=== PATIENT | female | born 1950 | race Caucasian/White ===

== ENCOUNTER 2017-01-14 07:58 | Day surgery (SDC) | payer BC ==
[2017-01-14] MEDS ORDERED: PROPOFOL 10 MG/ML VIAL IV ONE (14:00)
[2017-01-14] MEDS ORDERED: LIDOCAINE 2% MDV (20MG/ML) 20ML VIAL IV ONE (14:00)
--- NOTE | 2017-01-16 11:10 | Operative Note ---
DATE OF SURGERY: 01/14/2017 OPERATION: Attempted COLONOSCOPY, incomplete colonoscopy due to redundant fixed colon. INDICATION: History of adenomatous polyps in the past. The patient returns at this time for surveillance. It has been 5 years since her last examination. She has had multiple surgeries including hysterectomy, 3 sections, and cholecystectomy. ANESTHESIA: Intravenous sedation was administered by the department of anesthesiology and included Diprivan titrated to effect. PROCEDURE: Following informed consent from this alert individual including a discussion of the risks and benefits of the procedure and an opportunity for the patient to ask questions, the patient was in the left lateral decubitus position. A digital rectal examination was performed. No abnormalities were noted. Following this, the Olympus [id number] video colonoscope was inserted into the rectum without resistance. The rectal mucosa had a normal appearance with normal folds and distensibility. The endoscope was then passed up into a somewhat redundant fixed sigmoid colon. Attempting to advance the colonoscope further was unsuccessful due to again a fixed immobile sigmoid colon and concerns for possible perforation. From the proximal sigmoid colon, the colonoscope was then withdrawn. No mucosal abnormalities are detected. Retroflexion in the rectum was endoscopically unremarkable. The instrument was removed. The patient tolerated the procedure well and was returned to the recovery area in stable condition. IMPRESSION: Fixed redundant sigmoid colon precluding advancement further into the bowel. RECOMMENDATIONS: The patient will have a barium enema x-ray to complete colon evaluation. Further recommendations will be forthcoming pending those results. Followup will also be with Dr. Jacoby Mclaughlin. As always, thank you for allowing me to participate in the care of your patient. Bora Tejada DO CC: Dr. Jacoby ELIZABETH
== END 2017-01-14 11:37 | disposition home or self-care (01) ==
LOC: HOP 07:58
PROVIDERS: ATTEND Internal Medicine Gastroenterology
DX: Z09 Encounter for follow-up examination after completed treatment for conditions other than malignant neoplasm (principal); K63.89 Other specified diseases of intestine

== ENCOUNTER 2017-01-22 10:24 | Emergency (ER) | payer BC ==
[2017-01-22] MEDS ORDERED: ACETAMINOPHEN 1,000 MG/100 ML BTL IVPB ONE (10:34)
--- NOTE | 2017-01-22 10:42 | Emergency Department Record ---
History of Present Illness - General Chief Complaint: Shortness of breath Stated Complaint: TREMORS Time Seen by Provider: 01/22/17 10:26 Source: Patient, Family Mode of Arrival: Ambulatory Limitations: No limitations - History of Present Illness Initial Comments: 66 yo female presents with several days of cough. Today she developed shaking chills, subjective fever with continued cough and body aches. Her cough has been mostly non productive. She was treated about one month ago for a cough with a ZPack. She had improved. This morning the chills and shakes have been uncontrolled. No vomiting or diarrhea. She has some pains in the chest but that is with shaking. She has had a complete cardiac work up including a cath that was negative. No rash. She reports she got a flu shot one week ago. PCP is Dr Mclaughlin. She is up to date on immunizations. MD Complaint: Cough, Shortness of breath -: Hour(s) Severity: Moderate Quality: Aching Consistency: Constant Improves With: Nothing Worsens With: Coughing Context: Anxiety Associated Symptoms: Chest pain, Cough, Fever, Palpitations - Related Data Home Medications Medication Instructions Recorded Confirmed Last Taken Ascorbic Acid [Vitamin C] 250 mg PO DAILY 06/28/14 01/22/17 01/22/17 Celecoxib [Celebrex] 200 mg PO DAILY 06/28/14 01/22/17 01/22/17 Levothyroxine Sodium [Synthroid] 25 mcg PO DAILYTHY 06/28/14 01/22/17 01/22/17 Travoprost [Travatan Z] 2.5 ml OPTH QHS 06/28/14 02/09/15 01/21/17 Hydroxychloroquine Sulfate 200 mg PO DAILY 01/22/17 01/22/17 01/22/17 [Plaquenil] Previous Rx's Medication Instructions Recorded Benzonatate [Tessalon] 2 cap PO Q8H PRN #20 cap 01/22/17 Levofloxacin [Levaquin] 750 mg PO DAILY #7 tab 01/22/17 Allergies Allergy/AdvReac Type Severity Reaction Status Date / Time codeine AdvReac Intermediate RASH Verified 01/22/17 10:28 Review of Systems Constitutional: Reports: Chills, Fever, Malaise, Weakness Eyes: Denies: Eye discharge, Eye pain, Photophobia, Vision change ENT: Reports: Congestion. Denies: Throat pain Respiratory: Reports: Cough. Denies: Dyspnea, Hemoptysis, Stridor, Wheezes Cardiovascular: Reports: Chest pain. Denies: Palpitations, Syncope Endocrine: Denies: Polydipsia, Polyuria Gastrointestinal: Denies: Abdominal pain, Diarrhea, Nausea, Vomiting Genitourinary: Denies: Dysuria, Urgency Musculoskeletal: Reports: Myalgia. Denies: Arthralgia, Back pain, Joint swelling, Neck pain Skin: Denies: Bruising, Change in color, Rash Neurological: Reports: Headache. 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 - Hx Genitourinary Disorders: No - ENDOCRINE Hx Endocrine Disorders: Yes Hx Thyroid Disease: Yes - MUSCULOSKELETAL Hx Musculoskeletal Disorders: Yes Hx Arthritis: Yes Comment:: Lupus - PSYCH Hx Psych Problems: No - HEMATOLOGY/ONCOLOGY Hx Hematology/Oncology Disorders: Yes Hx Cancer: Yes (BREAST) Hx Chemotherapy: No Hx Radiation Therapy: Yes Family Medical History Hx Diabetes: Father, Brother/Sister Hx Heart Disease: Father Hx Stroke: Father Physical Exam - General General Appearance: Alert, Oriented x3, Cooperative, No acute distress Limitations: No limitations - Head Head exam: Normal inspection - Eye Eye exam: Normal appearance, PERRL. negative: Conjunctival injection, Periorbital swelling - ENT ENT exam: Normal exam, Mucous membranes moist Ear exam: Normal external inspection Nasal Exam: Normal inspection Mouth exam: Normal external inspection Teeth exam: Normal inspection - Neck Neck exam: Normal inspection, Full ROM. negative: Tenderness - Respiratory Respiratory exam: Decreased breath sounds, Rhonchi (few scattered mild). negative: Accessory muscle use, Prolonged expiratory - Cardiovascular Cardiovascular Exam: Normal rhythm, Normal heart sounds, Tachycardia Peripheral Pulses: 2+: Radial (R), Radial (L) - GI/Abdominal GI/Abdominal exam: Soft. negative: Distended, Tenderness - Rectal Rectal exam: Deferred - exam: Deferred - Extremities Extremities exam: Normal inspection, Full ROM, Normal capillary refill. negative: Pedal edema, Tenderness - Back Back exam: Reports: Normal inspection, Full ROM. Denies: Muscle spasm, Rash noted, Tenderness - Neurological Neurological exam: Alert, Normal gait, Oriented X3 - Psychiatric Psychiatric exam: Normal affect, Normal mood - Skin Skin exam: Dry, Intact, Normal color, Warm Course - Reevaluation(s) Reevaluation #1: EKG 10:52 NSR rate 108, intervals normal, axis normal, ST normal. No ischemic changes. Normal appearing EKG. No changes from 06/28/14 Patient is improving quickly with HR now 105 from 135. 01/22/17 10:55 01/22/17 10:57 Reevaluation #2: The labs were reviewed Influenza is negative CXR was read as no acute process CBC with WBC of 11 with normal N and normal bands No acute changes on the CMP ESR and CRP are negative lactic acid mild increase at 2.6 (possible from shivering) The patient is much improved. Vitals now in the normal range. UA obtained and sent to lab Will complete second liter and recheck Lactic Acid. 01/22/17 12:02 01/22/17 12:12 UA reviewed and is negative. Reevaluation #3: The lactic acid repeat normalized to 1.3 The patient continues to do very well. No signs of sepsis or serious infection with the labs, vitals and clinic improvement I will discuss with the patient's PCP as well Levaquin given. 01/22/17 13:30 Reevaluation #4: I Sw the patient's PCP and discussed the clinical presentation and work up The patient will be DC home. Dr Mclaughlin will follow the cultures. The patient will be given instructions for returning to the ED as well as follow up with Dr Mclaughlin this week. 01/22/17 13:38 - Consultations Consultation #1: [facility] Summary01/25/15 DCDx: UTI, NSTEMI, Bacteremia, Hypotension. (Hx of esophageal achalasia, fibromyalgia, C-Cestion, Hypthyroid, Lupus) She had a normal cardiac cath in 2014 with normal epicardial arteries She was E. coli positive urine and blood treated with Levaquin. Medical Decision Making - Lab Data Result diagrams: 01/22/17 10:35 01/22/17 10:35 Disposition Disposition: Discharge Clinical Impression: Cough, Chills with fever Disposition: Home, Self-Care Condition: (1) Good Instructions: Acute Bronchitis (ED) Additional Instructions: Return immediately if you develop chills or shakes You may take Tylenol or Motrin for mild fever or aches Take the Levaquin daily as directed Call Dr Mclaughlin to followup Prescriptions: Benzonatate [Tessalon] 2 cap PO Q8H PRN #20 cap PRN Reason: Cough Levofloxacin [Levaquin] 750 mg PO DAILY #7 tab Forms: Patient Portal Access Time of Disposition: 13:39
[2017-01-22 10:48] LABS: HEMATOCRIT 42.8 % (35.0-47.0); HEMOGLOBIN 14.7 gm/dl (11.6-16.0); MEAN CELL VOLUME 89.4 fl (81-97); MEAN CORPUSCULAR HEMOGLOBIN 30.7 pg (27-33); MEAN CORPUSCULAR HGB CONC 34.3 g/dl (32-36); MEAN PLATELET VOLUME 8.7 fl (7.4-10.4); PLATELET COUNT 246 K/uL (130-400); RED BLOOD COUNT 4.79 M/uL (3.80-5.40); RED CELL DISTRIBUTION WIDTH 12.4 % (11.5-14.5)
[2017-01-22] MEDS ORDERED: 0.9 % SODIUM CHLORIDE 1,000 ML BAG IV ONE ×2 (10:58→11:51)
[2017-01-22 11:00] LABS: ALB/GLOB RATIO 1.3 (1.1-1.8); ALBUMIN 4.5 gm/dL (3.5-5.0); ALKALINE PHOSPHATASE 112 U/L (38-126); ALT/SGPT 31 U/L (9-52); ANION GAP 8.7 (7-16); AST/SGOT 28 U/L (14-36); BILIRUBIN,TOTAL 0.84 mg/dL (0.2-1.3); BLOOD UREA NITROGEN 19 mg/dL (7-17); CARBON DIOXIDE 26.3 mmol/L (22-30); CREATININE 0.7 mg/dL (0.52-1.04); EST GLOMERULAR FILTRATION RATE > 60 ml/min; GLUCOSE,RANDOM 122 mg/dL (70-110); TOTAL PROTEIN 8.1 gm/dL (6.3-8.2)
[2017-01-22 11:02] LABS: INFLUENZA A NEGATIVE (NEGATIVE); INFLUENZA B NEGATIVE (NEGATIVE)
[2017-01-22 11:03] LABS: C-REACTIVE PROTEIN < 0.5 mg/dL (0.0-0.9)
[2017-01-22 11:06] LABS: PLATELET ESTIMATE NORMAL (NORMAL)
[2017-01-22 11:29] LABS: ERYTHROCYTE SEDIMENTATION RATE 2 mm/hr (0-30)
[2017-01-22 12:07] LABS: URINE APPEARANCE SL CLOUDY; URINE BILIRUBIN NEGATIVE (NEGATIVE); URINE BLOOD NEGATIVE (NEGATIVE); URINE COLOR YELLOW; URINE GLUCOSE (UA) NEGATIVE (NEGATIVE); URINE KETONE NEGATIVE (NEGATIVE); URINE LEUKOCYTE ESTERASE NEGATIVE (NEGATIVE); URINE NITRITE NEGATIVE (NEGATIVE); URINE PROTEIN NEGATIVE (NEGATIVE); URINE UROBILINOGEN 0.2 E.U./dL (0.20 - 1.00)
[2017-01-22] MEDS ORDERED: LEVOFLOXACIN/D5W 750 MG/150 ML BAG IVPB ONE (12:11)
--- NOTE | 2017-01-23 09:14 | RADIOLOGY REPORT ---
EXAM: CHEST, TWO VIEWS HISTORY: FEVER AND CHILLS TODAY. COUGH FOR FIVE WEEKS. TECHNIQUE: Semi-erect AP and lateral views of the chest were obtained. Comparison: Two view chest radiographic examination dated 10/20/09. FINDINGS: The heart is not enlarged and the pulmonary vasculature is nondilated. No confluent air space opacity is seen nor is there costophrenic angle blunting or pneumothorax. Surgical clips project at the level of the anterior right axilla. There are degenerative changes of the visualized spine. IMPRESSION: NO RADIOGRAPHIC EVIDENCE OF ACUTE CARDIOPULMONARY DISEASE WITHOUT SUSPICIOUS CHANGE SINCE 10/20/09. JOB NUMBER: [id number] MTDD
== END 2017-01-22 14:27 | disposition home or self-care (01) ==
LOC: ER 10:24
DX: R05 Cough (principal); R50.9 Fever, unspecified; R06.02 Shortness of breath; R51 Headache; R07.9 Chest pain, unspecified; Z85.3 Personal history of malignant neoplasm of breast
CPT/HCPCS: 99284 ×2; 96365; 96375; 83605; 85651; 86140; 80053; 81003; 87400; 85027; 71020; 93005; 93010; J1956; J7030

== ENCOUNTER 2018-11-19 18:10 | Emergency (ER) | payer MEDICARE ==
[2018-11-19] MEDS ORDERED: IBUPROFEN 600 MG TABLET PO ONE (18:21)
--- NOTE | 2018-11-19 18:26 | Emergency Department Record ---
History of Present Illness - General Chief complaint: Lower Extremity Pain Stated complaint: fall/rt leg pain Time Seen by Provider: 11/19/18 18:20 Source: Patient Mode of Arrival: Wheelchair Limitations: No limitations - History of Present Illness Initial comments: 68 yo female presents to ED for evaluation of right thigh and calf pain that began approximately 1 week ago. Patient denies specific injury, but reports that she has been compensating for her pain symptoms and while walking down steps this evening felt a "pop like a rubber band" and pain radiating from the popliteal region proximally. Patient reports that she has been unable to weight bear following her injury. Patient denies recent quinolone use, reports a history of lupus, fibromyalgia, and breast cancer in remission. MD Complaint: Extremity pain Onset/Timin -: Week(s) Location: Right, Lower Leg, Thigh History of Same: No -: Yes Myalgia Radiation: Proximal Quality: Aching Consistency: Constant Improves with: Nothing Worsens with: Weight bearing Associated Symptoms: Denies other symptoms - Related Data Allergies Allergy/AdvReac Type Severity Reaction Status Date / Time codeine AdvReac Intermediate RASH Verified 11/19/18 18:23 Travel Screening - Travel/Exposure Within Last 30 Days Have you traveled within the last 30 days?: No - Travel/Exposure Within Last Year Have you traveled outside the [place] in the last year?: No - Additonal Travel Details Have you been exposed to anyone with a communicable illness?: No Review of Systems Constitutional: Denies: Chills, Fever, Malaise, Night sweats Eyes: Denies: Eye discharge, Eye pain ENT: Denies: Congestion, Ear pain, Epistaxis Respiratory: Denies: Cough, Dyspnea Cardiovascular: Denies: Chest pain, Dyspnea on exertion, Palpitations Endocrine: Denies: Fatigue, Heat or cold intolerance Gastrointestinal: Denies: Nausea, Vomiting Genitourinary: Denies: Incontinence, Retention Musculoskeletal: Reports: Myalgia. 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 - Hx Genitourinary Disorders: No - ENDOCRINE Hx Endocrine Disorders: Yes Hx Thyroid Disease: Yes - MUSCULOSKELETAL Hx Musculoskeletal Disorders: Yes Hx Arthritis: Yes Comment:: Lupus - PSYCH Hx Psych Problems: No - HEMATOLOGY/ONCOLOGY Hx Hematology/Oncology Disorders: Yes Hx Cancer: Yes (BREAST) Hx Chemotherapy: No Hx Radiation Therapy: Yes Family Medical History Any Significant Family History?: No Hx Diabetes: Father, Brother/Sister Hx Heart Disease: Father Hx Stroke: Father Physical Exam - General General Appearance: Alert, Oriented x3, Cooperative, Mild distress Limitations: No limitations - Head Head exam: Atraumatic, Normocephalic, Normal inspection Head exam detail: negative: Abrasion, Contusion, Cardenas's sign, General tenderness, Hematoma, Laceration - Eye Eye exam: Normal appearance. negative: Conjunctival injection, Periorbital swelling, Periorbital tenderness, Scleral icterus - ENT Ear exam: negative: Auricular hematoma, Auricular trauma Nasal Exam: negative: Active bleeding, Discharge, Dried blood, Foreign body Mouth exam: negative: Drooling, Laceration, Muffled voice, Tongue elevation - Neck Neck exam: Normal inspection. negative: Meningismus, Tenderness - Respiratory Respiratory exam: Normal lung sounds bilaterally. negative: Respiratory distress, Rhonchi, Stridor, Wheezes - Cardiovascular Cardiovascular Exam: Regular rate, Normal rhythm, Normal heart sounds Peripheral Pulses: 3+: Dorsalis Pedis (R) - GI/Abdominal GI/Abdominal exam: Soft. negative: Distended, Rigid, Tenderness - Rectal Rectal exam: Deferred - exam: Deferred - Extremities Extremities exam: Calf tenderness, Tenderness, Other (TTP along the TFL of the right lateral thigh extending to the politeal region and calf muscle right, no edema present, pain symptoms are reproducible with dorsiflexion of the right foot. Strong DPP present, compartments are soft on examination.). negative: Pedal edema - Back Back exam: Denies: CVA tenderness (R), CVA tenderness (L) - Neurological Neurological exam: Alert, Oriented X3 - Psychiatric Psychiatric exam: Normal affect, Normal mood - Skin Skin exam: Normal color. negative: Abrasion Type of lesion: negative: abrasion Course Vital Signs 11/19/18 18:12 Temperature 97.8 F Pulse Rate 91 H Respiratory 20 Rate Blood Pressure 130/86 Pulse Ox 99 - Reevaluation(s) Reevaluation #1: 11/19/18 18:26 Patient was seen and examined. Will obtain doppler examination of the right lower extremity to exclude the presence of DVT given her 1-week history of pain symptoms. Discussed with the patient and her SO that radiographs/laboratory studies are unlikely to be of benefit given the absence of traumtic injury, patient is in agreement with the plan of care as discussed. Reevaluation #2: 11/19/18 20:03 Venous Doppler RLE: No DVT Probable popliteal cyst Patient was updated on all results, ? partial soleus tear to the affected area. Will place in fracture boot and arrange for consultation with Dr. Clarke, patient is in agreement with the plan of care as discussed. Disposition Disposition: Discharge Clinical Impression: Muscle tear, Right calf pain Disposition: Home, Self-Care Condition: (2) Stable Instructions: Muscle Strain (ED) Additional Instructions: Return to ED if your symptoms worsen or if you have any concerns. Ibuprofen as directed. Fracture boot as directed. Follow-up with Dr. Clarke in the [facility] for further evaluation of your partial muscle tear in 3-5 days as directed. Referrals: DONI CLARKE [DOCTOR OF OSTEOPATH] - [facility] [Provider Group] Forms: Patient Portal Access Time of Disposition: 20:05 Quality - Quality Measures Quality Measures: N/A - Blood Pressure Screening Does Patient Have Any of the Following: No Blood Pressure Classification: Pre-Hypertensive BP Reading Systolic Measurement: 130 Diastolic Measurement: 86 Screening for High Blood Pressure: < Pre-Hypertensive BP, F/U Documented > [ [id number]] Pre-Hypertensive Follow-up Interventions: Referral to alternative/primary care provider.
--- NOTE | 2018-11-22 17:44 | US VENOUS DOPPLER REPORT ---
EXAM: ULTRASOUND VENOUS DOPPLER LOWER EXT RT HISTORY: RIGHT LEG SWELLING IN THE KNEE. RECENT DRIVE FROM [place]. PAIN IN CALF AND POPLITEAL REGION. POSSIBLE DVT. TECHNIQUE: Venous Doppler ultrasound of the right lower extremity performed utilizing color-flow and spectral analysis. Compression and flow augmentation maneuvers were utilized as well. COMPARISON: Prior right lower extremity venous Doppler ultrasound dated . FINDINGS: No DVT identified on the right. Flow is seen throughout color-flow and spectral analysis. Compression and flow augmentation evident throughout where evaluated as well. While evaluating the popliteal region and thigh, there does appear to be some somewhat ill-defined sonolucency particularly in the popliteal region, which may represent some fluid, questionably a Wynne's cyst although relatively poorly demarcated. If clinically warranted, this could be further evaluated with an MRI if not contraindicated. IMPRESSION: 1. NO DVT EVIDENT ON THE RIGHT. 2. QUESTIONABLE SOMEWHAT POORLY MARGINATED POPLITEAL CYST ON THE RIGHT. THIS COULD LIKELY BE MORE FULLY EVALUATED WITH AN MRI IF CLINICALLY WARRANTED AND NOT CONTRAINDICATED. JOB [facility]BER: [id number] [facility]
== END 2018-11-19 20:22 | disposition home or self-care (01) ==
LOC: ER 18:10
DX: S86.811A Strain of other muscle(s) and tendon(s) at lower leg level, right leg, initial encounter (principal); M79.661 Pain in right lower leg; X58.XXXA Exposure to other specified factors, initial encounter; Z85.3 Personal history of malignant neoplasm of breast
CPT/HCPCS: 99283

== ENCOUNTER 2019-01-29 05:28 | Day surgery (SDC) | payer MEDICARE ==
[2019-01-29] MEDS ORDERED: MIDAZOLAM HCL 2MG/2ML VIAL IV ONE (05:29)
[2019-01-29] MEDS ORDERED: FENTANYL PF 100MCG/2ML VIAL IV ONE (05:29)
[2019-01-29] MEDS ORDERED: ONDANSETRON HCL IV 4 MG/2 ML VIAL IVP ONE (05:29)
[2019-01-29] MEDS ORDERED: PROPOFOL 10 MG/ML VIAL IV ONE (05:29)
[2019-01-29] MEDS ORDERED: LIDOCAINE 2% MDV (20MG/ML) 20ML VIAL IV ONE (05:29)
[2019-01-29] MEDS ORDERED: SEVOFLURANE 250 ML INH ONE (05:29)
[2019-01-29] MEDS ORDERED: ACETAMINOPHEN 1,000 MG/100 ML BTL IVPB ONE (06:00)
[2019-01-29] MEDS ORDERED: RINGERS SOLUTION,LACTATED 1,000 ML IV ONE (06:00)
[2019-01-29] MEDS ORDERED: BUPIVACAINE 0.25% W/EPI MPF 30ML VIAL SQ ONE (08:00)
[2019-01-29] MEDS ORDERED: KETOROLAC 30 MG/ML VIAL IVP ONE (08:24)
[2019-01-29] MEDS ORDERED: HYDROCODONE/APAP 5/325MG TABLET PO ONE (08:36)
--- NOTE | 2019-01-30 09:10 | Operative Note ---
DATE OF SURGERY: 01/29/2019 SURGEON: Dayday Perez DO PREOPERATIVE DIAGNOSES: 1. Torn medial and lateral meniscus, right knee. 2. Chondromalacia, right knee. POSTOPERATIVE DIAGNOSES: 1. Torn medial and lateral meniscus, right knee. 2. Loose joint body, right knee. 3. Synovitis 2 compartments, right knee. 4. Chondromalacia 3 compartments, right knee. OPERATION: 1. Arthroscopic partial medial and lateral meniscectomy, right knee. 2. Arthroscopic removal of loose joint body, right knee. 3. Arthroscopic partial synovectomy (2 compartments), right knee. 4. Arthroscopic chondroplasty of the medial femoral condyle, lateral femoral condyle, patella, and trochlea, right knee. DESCRIPTION OF PROCEDURE: This 68-year-old female was taken to the operating room and placed in the supine position on the operating room table where general anesthesia was induced. The right lower extremity was elevated, exsanguinated, and the tourniquet inflated to 300 mmHg. Arthroscopic knee landa applied. Right knee prepped with Hibiclens and draped in the usual sterile fashion. An inferolateral portal was established for the 4 mm arthroscope, and initial evaluation of the joint demonstrated normal appearance of the suprapatellar pouch. There was advanced degenerative disease of the patella and the trochlea with grade 3 changes noted in both mostly involving the median ridge but both facets were also affected. The lesion on the trochlea was approximately 1.5 cm wide with grade 3 changes. Grossly loose unstable fragments of articular cartilage were present on both, and chondroplasty was performed to stabilize the articular cartilage. The medial compartment was entered, and it was difficult to see the posterior horn of the medial meniscus because of a large loose joint body present in the anterior aspect of the joint. It had very superficial attachment to the synovium, and this was grasped with a grasper and removed. This was approximately 1 cm or so in greatest dimension. This gave us then excellent visualization of the medial compartment with grade 3 changes of the articular cartilage noted in the medial compartment, and chondroplasty was performed to stabilize the articular cartilage there as well. The entire weightbearing surface was affected. There was also a posterior horn tear near the meniscal root but the root itself did not appear to be torn, and the basket forceps was used to resect this radial-type tear. Approximately 3-4 mm of meniscus was removed at about the 11-o'clock position, and this was smoothed and tapered to a smooth stable contoured edge, which was stable. The medial compartment then was not further disturbed. The intracondylar notch was examined and the ACL was seen to be intact. A complex tear of the lateral meniscus was also identified with a significant tear of the anterior meniscus. This tear extended around to involve almost the entire lateral meniscus but to a lesser degree the posterior horn. Only very small amounts of meniscal tissue were removed from the posterior horn mostly to stabilize and smooth and contour the meniscus. The majority of the tear was from the 5-o'clock position at the anterior attachment around to about the 9 to 9:30 position. Utilizing the rotating shaver and basket forceps, we resected unstable fragments of the lateral meniscus, and it was probed and felt to be stable. The lateral femoral condyle also demonstrated grade 3 changes. This was a smaller lesion than the medial side being approximately 1.5 cm in greatest dimension. Loose unstable fragments of the lateral articular cartilage and lateral femoral condyle were performed, and the remainder appeared to be stable. The joint was then copiously irrigated and suctioned. The patient also had significant synovitis in the anteromedial and anterolateral compartments, and partial synovectomy was performed as well. The joint was suctioned and the instruments were removed. The portals were infiltrated with 0.25% Marcaine with epinephrine. Sterile dressings applied, tourniquet and knee landa released, and the patient taken to the recovery room in satisfactory condition. GROSS PATHOLOGY: There was significant synovitis and loose joint body in the knee as described above. Also grade 3 chondromalacia of all 3 compartments and tears of both the medial and lateral meniscus as described above. CC: DO CLARA Monae
== END 2019-01-29 09:10 | disposition home or self-care (01) ==
LOC: SUR 05:28
PROVIDERS: ATTEND Orthopaedic Surgery
DX: S83.271A Complex tear of lateral meniscus, current injury, right knee, initial encounter (principal); S83.241A Other tear of medial meniscus, current injury, right knee, initial encounter; M23.41 Loose body in knee, right knee; M94.261 Chondromalacia, right knee; C50.911 Malignant neoplasm of unspecified site of right female breast; M32.9 Systemic lupus erythematosus, unspecified
CPT/HCPCS: 29880; 29876; 01400; J1885; J2405; J3010; J7120